=== PATIENT | female | born 2000 | race Caucasian/White ===

== ENCOUNTER 2023-12-07 03:58 | Observation (INO) | payer OTHER, SELFPAY ==
[2023-12-07] VITALS (13 sets, daily range): BP systolic 107–139; BP diastolic 69–89; PULSE 87–145; RESP 13–20; TEMP 36.3–37.1; O2SAT 97–100; BMI 23.3
--- NOTE | ~2023-12-07 | XR_ITS ---
Portable chest x-ray Comparison: None Clinical History: Cough Findings: Lungs are clear, without focal consolidation or pleural effusion. Cardiomediastinal silho uette is unremarkable. Bones and soft tissues are unremarkable. Impression: Normal chest. Reviewed, dictated and finalized at location . IC ASSISTANT Impression: Normal chest.
[2023-12-07 04:12] LABS: Glucose Point of Care > 500 mg/dl (65-105)
[2023-12-07 04:18] LABS: Basophils Absolute Auto 0.1 K/mm3 (0.0-0.1); Basophils Percent Auto 0.8 % (0.2-1.2); Eosinophils Absolute Auto 0.1 K/mm3 (0-0.3); Eosinophils Percent Auto 0.5 % (0-4.4); Hemoglobin 13.9 g/dL (12.0-15.0); Immature Granulocyte Absolute 0.24 K/mm3 (0.00-0.031); Immature Granulocyte Percent A 1.4 % (0-0.5); Lymphocytes Absolute Auto 2.83 K/mm3 (0.9-3.2); Mean Corpuscular HGB Conc 30.9 g/dl (32-36); Mean Corpuscular Hemoglobin 27.2 pg (26-34); Mean Corpuscular Volume 88.1 fl (80-100); Mean Platelet Volume 11.3 fl (7.4-10.4); Monocytes Absolute Auto 0.8 K/mm3 (0.1-0.6); Monocytes Percent Auto 4.7 % (2.6-8.5); Neutrophils Absolute Auto 13.6 K/mm3 (1.3-6.7); Neutrophils Percent Auto 76.6 % (45.5-73.1); Platelet Count Result 337 k/mm3 (150-375); Red Blood Count 5.11 M/mm3 (4.2-5.4); Red Cell Distribution Width 16.5 % (11.5-14.5); White Blood Count 17.7 K/mm3 (4.5-10.0)
--- NOTE | 2023-12-07 04:27 | PC.NURSE ---
UPON ARRIVAL TO ROOM PT STATES SHE HAD A BABY 8 WEEKS AGO AT [facility]. PT IS NOTED TO BE BREAST FEEDING AT THIS TIME. PT IS SLOW TO ANSWER QUESTIONS AND LETHARGIC UPON ASSESSMENT. PT STATES SHE HAS HAD A HX OF BEING IN DKA. PT WAS ABLE TO AMBULATE OUT OF THE WHEELCHAIR AND INTO THE BED ASSISTED BY X2 RNS, WITH AN UNSTEADY GAIT. EDP MADE AWARE ALONG WITH BIT GATHERER. THIS RN ESTABLISHED A 2ND IV. IV ACCESS X2 IN BILATERAL AC.
[2023-12-07 04:50] LABS: Alanine Aminotransferase 48 U/L (6-35); Albumin Level 4.9 g/dL (3.5-5.1); Alkaline Phosphatase 132 U/L (38-126); Anion Gap 27 mmol/L (8-16); Aspartate Amino Transferase 41 U/L (14-36); Bilirubin,Total 0.9 mg/dL (0.2-1.3); Blood Urea Nitrogen 13 mg/dL (7-17); Calcium 10.1 mg/dL (8.4-10.2); Carbon Dioxide 8 mmol/L (22-30); Chloride 103 mmol/L (98-107); Estimated CRCL calculation 86 ml/min; Estimated Glomerular Filt Rate > 60; Glucose 515 mg/dL (65-110); Magnesium 1.6 mg/dL (1.6-2.3); Phosphorus 5.6 mg/dL (2.5-4.5); Potassium 4.5 mmol/L (3.4-5.0); Sodium 138 mmol/L (137-145)
--- NOTE | 2023-12-07 05:15 | PC.NURSE ---
THIS RN MADE RHEUMATOLOGIST AWARE AND EDP DR. FELIX AWARE OF PT CONDITION OF LETHARGIC AND INCREASING HEART RATE.
[2023-12-07 05:17] LABS: Beta-Hydroxybutyrate/Acetoacetate 9.69 mmol/L (0.02-0.27)
--- NOTE | 2023-12-07 05:59 | PC.NURSE ---
THIS RN SPOKE WITH EDP DR. FELIX AND HUB BORER ABOUT PATIENT CONDITION. PT VISITOR ASKED THIS RN TO NOTIFY PROVIDER OF WORSENING CONDITION. THIS RN EXPLAINED TO PT VISITOR THAT THIS RN HAS MULTIPLE TIMES ASKED EDP TO ASSESS PT. PT VISITOR TOLD THIS RN, I AM GOING TO HAVE TO LEAVE AND GO TO A DIFFERENT HOSPITAL, NO ONE HAS SEEN HER AND SHE IS IN A MEDICAL EMERGENCY, WE HAVE NEVER HAD TO DEAL WITH THIS AT OTHER HOSPITALS. SHE NEEDS INSULIN RIGHT NOW AND NO ONE IS HELPING HER . THIS RN EXPLAINED TO PT THAT THIS RN HAS ADVOCATED MULTIPLE TIMES FOR PT TO BE SEEN BY A PROVIDER. THIS RN MADE EDP DR. FELIX AWARE OF PATIENT ALONG WITH ED HUB BORER. EDP WENT AND ASSESSED PT. HUB BORER STATED NEW CHARGE CAN GO AND SPEAK WITH PT AND PT VISITOR .
--- NOTE | 2023-12-07 06:03 | PC.NURSE ---
ON 12/07/2023 AT 0603 THIS RN WENT INTO ED ROOM 1, AND SPOKE WITH PT'S VISITOR REGARDING HIS FRUSTRATION WITH THE WAIT TIME FOR HIS SIGNIFICANT OTHER. PT'S VISITOR WAS GIVEN GUILLERMO ZIMMERMAN -PT ADVOCATE's CARD WITH CONTACT INFO ON IT. PT'S VISITOR WAS REASSURED BY THIS NURSE THAT HIS SIGNIFICANT OTHER WILL BE TAKEN CARE OF, AND THAT ORDERS WERE BEING PUT INTO PLACE FOR HER AT THIS TIME. PT'S VISITOR VERBALIZED UNDERSTANDING.
--- NOTE | 2023-12-07 06:09 | PC.NURSE ---
EDP DR. FELIX VERBAL ORDER 3L OF NORMAL SALINE AT A RATE OF 999MLS/ HOUR FOR PT. THIS RN USED CLOSED LOOP COMMUNICATION TO CONFIRM RATE/ DOSE/ MEDICATION/ AND PATIENT. EDP DR. FELIX VERIFIED.
[2023-12-07] MEDS: INSULIN HUMAN REGULAR (*BKC) 100 UNITS/ML 10 UNITS IV PUSH (06:14)
--- NOTE | 2023-12-07 06:19 | ECG_ITS ---
Measurements Intervals [place] Rate: 145 P: 66 WA: 126 QRS: 82 QRSD: 86 T: 47 QT: 315 QTc: 490 Interpretive Statements SINUS TACHYCARDIA MINIMAL Q WAVES- INFERIOR LEADS NONSPECIFIC ST & T-WAVE ABNORMALITY- INFERIOR LEADS BASELINE WANDER- II, III, V5 ABNORMAL ECG NO PREVIOUS ECG AVAILABLE FOR COMPARISON Electronically Signed On 12-07-2023 7:05:20 HOGSHEAD PACKER by Viet Bear D.O.
--- NOTE | 2023-12-07 06:50 | ED.GENADULT ---
HPI - General Adult General Chief complaint: Recheck/Abnormal Lab/Rx Stated complaint: n/v, hyperglycemia Time Seen by Provider: 12/07/23 06:05 History of Present Illness HPI narrative: Patient is a 43-year-old female insulin-dependent diabetic it is 8 weeks presents emerged from with chief complaint of nausea vomiting patient reports she has history of diabetes reports feels similar to whenever she has been in DKA the patient reports that yesterday her blood sugars were normal the man had a malfunction with her insulin pump patient reports that she slept a lot today Related Data Allergies Allergy/AdvReac Type Severity Reaction Status Date / Time amoxicillin Allergy Rash Verified 12/07/23 04:09 clavulanic acid Allergy Rash Verified 12/07/23 04:09 [From Augmentin] metoclopramide [From Reglan] Allergy Other Verified 12/07/23 04:09 Review of Systems Review of Systems: A 10 system review of systems was completed on the patient and is negative except for what is stated in the HPI. Nursing and ancillary documentation was reviewed. Course Course Emergency Course: GENERAL: Ill-appearing, dry mucous membranes tachycardic HEAD: Normocephalic, atraumatic. EYES: PERRLA and EOMI. ENT: Nares clear, no rhinorrhea or epistaxis. Mucous membranes dry. NECK: Supple. CHEST: Clear to auscultation. No respiratory distress. HEART: Tachycardic rate and rhythm. No murmur heard. Normal peripheral pulses. ABDOMEN: Soft, nontender, nondistended, normal active bowel sounds. EXTREMITIES: Normal range of motion. No edema. SKIN: Warm, dry, no rash. NEURO: No focal deficits. Alert and oriented x3. PSYCH: Normal mood and affect. Vital Signs Vital signs: Vital Signs Temperature 36.3 C L 12/07/23 04:05 Pulse Rate 145 H 12/07/23 04:05 Respiratory Rate 16 12/07/23 04:05 Blood Pressure 107/89 12/07/23 04:05 Pulse Oximetry 97 12/07/23 04:05 Oxygen Delivery Room Air 12/07/23 04:05 Temperature 36.3 C L 12/07/23 04:05 Pulse Rate 137 H 12/07/23 05:15 Respiratory Rate 16 12/07/23 04:26 Blood Pressure 126/87 12/07/23 04:24 Pulse Oximetry 99 12/07/23 04:26 Oxygen Delivery Room Air 12/07/23 04:05 Medical Decision Making MDM Narrative Medical decision making narrative: Differential diagnosis includes DKA, viral syndrome, infection, Chest x-ray showed no evidence of pneumonia Patient's laboratory studies showed a blood sugar of greater than 500. Respiratory was 9.69 patient has an anion gap that is 27 CO2 was 8 Patient received fluids 3 L of normal saline boluses. Insulin drip was started on the patient case was discussed with both the hospitalist and the chairman & co founder Vital Signs Vital Signs: Vital Signs Temperature 36.3 C L 12/07/23 04:05 Pulse Rate 145 H 12/07/23 04:05 Respiratory Rate 16 12/07/23 04:05 Blood Pressure 107/89 12/07/23 04:05 Pulse Oximetry 97 12/07/23 04:05 Oxygen Delivery Room Air 12/07/23 04:05 Temperature 36.3 C L 12/07/23 04:05 Pulse Rate 137 H 12/07/23 05:15 Respiratory Rate 16 12/07/23 04:26 Blood Pressure 126/87 12/07/23 04:24 Pulse Oximetry 99 12/07/23 04:26 Oxygen Delivery Room Air 12/07/23 04:05 Lab Data 12/07/23 04:13 12/07/23 04:13 Labs: Lab Results 12/07/23 12/07/23 Range/Units 04:08 04:13 WBC 17.7 H (4.5-10.0) K/mm3 RBC 5.11 (4.2-5.4) M/mm3 Hgb 13.9 (12.0-15.0) g/dL Hct 45.0 (37.0-47.0) % MCV 88.1 (80-100) fl MCH 27.2 (26-34) pg MCHC 30.9 L (32-36) g/dl RDW 16.5 H (11.5-14.5) % Plt Count 337 (150-375) k/mm3 MPV 11.3 H (7.4-10.4) fl Immature Gran % (Auto) 1.4 H (0-0.5) % Neut % (Auto) 76.6 H (45.5-73.1) % Lymph % (Auto) 16.0 L (18.3-44.2) % Smyth % (Auto) 4.7 (2.6-8.5) % Eos % (Auto) 0.5 (0-4.4) % Baso % (Auto) 0.8 (0.2-1.2) % Lymph # (Auto) 2.83 (0.9-3.2) K/mm3 Smyth # (Auto) 0.8 H (0.1-0.6
[2023-12-07] MEDS: INSULIN HUMAN REGULAR (*BKC) 100 UNITS in SODIUM CHLORIDE 0.9% IV 99 ML 6 UNITS IV CONT (06:53)
[2023-12-07] MEDS: SODIUM CHLORIDE 0.9% IV 1,000 ML 999 ML IV CONT (06:56)
--- NOTE | 2023-12-07 06:59 | PC.NURSE ---
THIS RN CONSULTED OB RNS TO HELP PT USE A BREAST PUMP FOR 8 WEEK OLD AT BEDSIDE. PT STATED SHE IS USED TO PUMPING TO FEED INFANT, HOWEVER SHE IS FEELING WEAK UNABLE TO GET ANYTHING OUT OF THE PUMP. THIS RN CONSULTED OB TO INQUIRE ABOUT FORMULA FOR AT BEDSIDE. OB RN CAME TO BEDSIDE AND EDUCATED PT ON HOW TO USE BREAST PUMP ALONG WITH PROVIDER INFANT FORMULA.
[2023-12-07 07:23] LABS: Alanine Aminotransferase 36 U/L (6-35); Albumin Level 4.1 g/dL (3.5-5.1); Alkaline Phosphatase 109 U/L (38-126); Aspartate Amino Transferase 28 U/L (14-36); Bilirubin,Total 0.6 mg/dL (0.2-1.3); Blood Urea Nitrogen 13 mg/dL (7-17); Calcium 8.7 mg/dL (8.4-10.2); Carbon Dioxide < 5 mmol/L (22-30); Chloride 111 mmol/L (98-107); Estimated CRCL calculation 98 ml/min; Estimated Glomerular Filt Rate > 60; Glucose 378 mg/dL (65-110); Magnesium 1.7 mg/dL (1.6-2.3); Phosphorus 4.7 mg/dL (2.5-4.5); Potassium 3.9 mmol/L (3.4-5.0); Sodium 141 mmol/L (137-145)
[2023-12-07 07:36] LABS: Influenza A QL RT-PCR Negative (Negative); Influenza B QL RT-PCR Negative (Negative); RSV RNA, RT-PCR Negative (Negative); SARS-CoV-2 RNA PCR Negative (Negative)
[2023-12-07 07:48] LABS: Hemoglobin A1C 8.4 % (<5.7)
[2023-12-07 08:06] LABS: Glucose Point of Care 213 mg/dl (65-105)
[2023-12-07 08:35] LABS: Appearance Urine Cloudy (Clear); Bacteria Urine None Seen /hpf; Bilirubin Urine Negative (Negative); Blood Urine 2+ (Negative); Color Urine Yellow (Yellow); Glucose Urine UA 3+ mg/dL (Negative); Ketones Urine 4+ mg/dL (Negative); Leukocyte Esterase Ur Negative LEU/UL (Negative); Nitrate Urine Negative (Negative); Non Pathogenic Casts 0-2; Protein Urine 1+ mg/dL (Negative); RBC Urine 0-2 /hpf (0-2); Specific Grav Ur 1.025 (1.001-1.035); Squamous Epithelial Cell Urine Occasional /hpf (Few); Urobilinogen Urine 0.2 mg/dL (<2.0); WBC Urine 0-5 /hpf
[2023-12-07 08:37] LABS: Add Urine Microscopic? YES
[2023-12-07] MEDS: KCL 20 MEQ/D5/0.45% SOD CHL 1,000 ML 150 ML IV CONT ×2 (08:45→17:17)
--- NOTE | 2023-12-07 08:47 | WPDCNINT ---
Assessment and Plan Assessment and plan (1) Diabetic ketoacidosis: Code(s): E11.10 - Type 2 diabetes mellitus with ketoacidosis without coma Status: Acute Assessment and Plan: Patient given iVF bolus and will be continued on infusion Patient started on insulin infusion and Q1H glucose monitoring Serial labs will be done UA and chest x-ray negative for any evidence of infection Influenza RSV and COVID PCR negative Replace electrolytes as needed Will transition to SC insulin once AG is closed Consult dietitian and senior health educator (2) Hypothyroidism: Code(s): E03.9 - Hypothyroidism, unspecified Status: Acute Assessment and Plan: Continue levothyroxine and check TSH Plan DVT prophylaxis -SCDs Nutrition -npo Code Status - Full Code Total Critical Care Time - 30 minutes Due to a high probability of clinically significant, life threatening deterioration, the patient required my highest level of preparedness to intervene emergently and I personally spent this critical care time directly and personally managing the patient. This critical care time included obtaining a history; examining the patient; pulse oximetry; ordering and review of studies; arranging urgent treatment with development of a management plan; evaluation of patient's response to treatment; frequent reassessment; and discussions with other providers. It was exclusive of separately billable procedures and treating other patients and teaching time. Please see Assessment and Plan section and the rest of the note for further information on patient assessment and treatment Keypuncher Consult Note Consult date: 12/07/23 Reason for consult: DKA HPI: Gianna Christine is a 23 year old female with past medical history of diabetes, preeclampsia and hypothyroidism who is 8 weeks presented with chief complaint of nausea vomiting this morning. Patient normally uses insulin pump and has a Dexcom monitor. Her Dexcom monitor has not been working properly and she has been using fingersticks to monitor blood sugars which have been mostly in range high checks over last few days. She woke up around 2:00 a.m. this morning and after that she started feeling nauseous and had vomiting no abdominal pain. She noticed her blood sugar to be 500 and hence presented to ER. She has had 2 episodes of DKA in the past requiring admission. Last admission was more than a year ago. Denies any other complaints or symptoms. Patient denies fever, chest pain, shortness of breath, cough, abdominal pain,, diarrhea, headache or constipation. No dysuria hematuria. All other systems were reviewed and negative. In ER patient was found to be having DKA and was given IV fluid bolus and started on IV fluids and IV insulin infusion. She states she feels much better now but still has some nausea although it is better than before. No other new complaints. Review of Systems Review of Systems: All systems reviewed & are unremarkable except as noted in HPI and below (HPI) Meds Home Medications and Allergies Home Medications Medication Instructions Recorded Confirmed Type ferrous gluconate 240 mg (27 mg 240 mg PO DAILY 12/07/23 12/07/23 History iron) tablet levothyroxine 150 mcg tablet 150 mcg PO DAILY 12/07/23 12/07/23 History Allergies Allergy/AdvReac Type Severity Reaction Status Date / Time amoxicillin Allergy Rash Verified 12/07/23 04:09 clavulanic acid Allergy Rash Verified 12/07/23 04:09 [From Augmentin] metoclopramide [From Reglan] Allergy Other Verified 12/07/23 04:09 Vital Signs Vital Signs - 24 hr 12/07/23 04:05 12/07/23 04:24 12/07/23 04:26 Temperature 36.3 C L Pulse Rate 145 H 142 H Respiratory Rate 16 15 16 Blood Pressure 107/89 126/87 Pulse Oximetry 97 100 99 Oxygen Delivery Room Air 12/07/23 05:15 12/07/23 07:21 12/07/23 07:55 Temperature Pulse Rate 137 H 140 H 136 H Respiratory Rate 16 20 Blood Press
[2023-12-07] MEDS: ONDANSETRON INJ 4 MG/2 ML VIAL IV PUSH (08:49)
[2023-12-07 10:05] LABS: Glucose Point of Care 181 mg/dl (65-105)
[2023-12-07 10:05] LABS: Glucose Point of Care 174 mg/dl (65-105)
[2023-12-07 11:18] LABS: Anion Gap 20 mmol/L (8-16); Blood Urea Nitrogen 9 mg/dL (7-17); Calcium 8.6 mg/dL (8.4-10.2); Carbon Dioxide 8 mmol/L (22-30); Chloride 115 mmol/L (98-107); Estimated CRCL calculation 112 ml/min; Estimated Glomerular Filt Rate > 60; Glucose 200 mg/dL (65-110); Potassium 4.4 mmol/L (3.4-5.0); Sodium 143 mmol/L (137-145)
[2023-12-07 12:12] LABS: Glucose Point of Care 247 mg/dl (65-105)
[2023-12-07 12:30] LABS: Thyroid Stimulating Hormone Reflex 0.496 uIU/mL (0.465-4.68)
[2023-12-07 13:10] LABS: Glucose Point of Care 318 mg/dl (65-105)
[2023-12-07] MEDS: SODIUM CHLORIDE 0.9% IV 1,000 ML 150 ML IV CONT (13:15)
[2023-12-07 14:07] LABS: Glucose Point of Care 251 mg/dl (65-105)
[2023-12-07 15:09] LABS: Glucose Point of Care 206 mg/dl (65-105)
[2023-12-07 15:31] LABS: Anion Gap 13 mmol/L (8-16); Blood Urea Nitrogen 7 mg/dL (7-17); Calcium 8.8 mg/dL (8.4-10.2); Carbon Dioxide 12 mmol/L (22-30); Chloride 114 mmol/L (98-107); Estimated CRCL calculation 132 ml/min; Estimated Glomerular Filt Rate > 60; Glucose 184 mg/dL (65-110); Potassium 3.8 mmol/L (3.4-5.0); Sodium 139 mmol/L (137-145)
[2023-12-07 16:16] LABS: Glucose Point of Care 177 mg/dl (65-105)
[2023-12-07 17:21] LABS: Glucose Point of Care 169 mg/dl (65-105)
--- NOTE | 2023-12-07 18:13 | PM.IMHP ---
H&P: HPI History of Present Illness Date/Time: 12/07/23 18:13 Chief Complaint: Nausea and vomiting Narrative: 23-year-old female with history of insulin-dependent diabetes mellitus preeclampsia and hypothyroidism. She reports being 8 weeks . She had nausea and vomiting morning of admission. Reports being compliant with her medications except that her Dexcom has not been working properly. She has history of prior DKA and at that time her insulin pump was malfunctioning. She cannot elicit other complaints and does not feel like she has an infection of any type. Comprehensive review of systems is negative including nausea and vomiting as the DKA treatment has been underway. Review of Systems Review of Systems: All systems reviewed & are unremarkable except as noted in HPI and below (HPI) FOR[facility]LY [facility], [facility] Past Medical History Medical History (Updated 12/07/23 @ 18:15 by Natasha Villa MD) Hypothyroidism Insulin dependent diabetes mellitus Social History Social History Smoking status: Never smoker Second hand tobacco smoke exposure: No Alcohol intake: unknown Substance use: never Do You Feel Safe in your Home?: Yes Lack of Transportation: No Lack of Food: Never True Current Housing: I Have Housing Concerned About Future Housing: No Difficulty Paying Gas/Electric Bills: No Difficulty Paying for Meds: No Currently Unemployed: No Education: High School Diploma/GED Difficulty w/ Childcare or Family Care: No Spiritual care concerns: No Meds Home Medications and Allergies Home Medications Medication Instructions Recorded Confirmed Type ferrous gluconate 240 mg (27 mg 240 mg PO DAILY 12/07/23 12/07/23 History iron) tablet levothyroxine 150 mcg tablet 150 mcg PO DAILY 12/07/23 12/07/23 History Allergies Allergy/AdvReac Type Severity Reaction Status Date / Time amoxicillin Allergy Rash Verified 12/07/23 04:09 clavulanic acid Allergy Rash Verified 12/07/23 04:09 [From Augmentin] metoclopramide [From Reglan] Allergy Other Verified 12/07/23 04:09 Vital Signs Vital Signs - 24 hr 12/07/23 04:05 12/07/23 04:24 12/07/23 04:26 Temperature 97.4 F L Pulse Rate 145 H 142 H Respiratory Rate 16 15 16 Blood Pressure 107/89 126/87 Pulse Oximetry 97 100 99 Oxygen Delivery Room Air 12/07/23 05:15 12/07/23 07:21 12/07/23 07:55 Temperature Pulse Rate 137 H 140 H 136 H Respiratory Rate 16 20 Blood Pressure 139/80 130/80 Pulse Oximetry 100 99 Oxygen Delivery 12/07/23 09:00 12/07/23 10:00 12/07/23 10:00 Temperature 98.8 F 98.8 F Pulse Rate 128 H 128 H 128 H Respiratory Rate 16 16 Blood Pressure 120/81 128/76 Pulse Oximetry 100 100 Oxygen Delivery 12/07/23 12:00 12/07/23 12:00 12/07/23 14:00 Temperature 97.8 F Pulse Rate 100 109 H 98 Respiratory Rate 16 Blood Pressure 119/69 Pulse Oximetry 99 Oxygen Delivery 12/07/23 14:00 12/07/23 16:00 12/07/23 18:00 Temperature 98.7 F 97.7 F 98.1 F Pulse Rate 98 89 95 Respiratory Rate 20 14 16 Blood Pressure 115/75 112/70 116/78 Pulse Oximetry 98 98 100 Oxygen Delivery Exam Const: General: comfortable and no acute distress Other: present in room. A&O x3. Eyes: Pupils: Equal, round and reactive pupils present Resp: Effort & Inspection: normal respiratory effort Auscultation: clear to auscultation bilaterally, no crackles, no rales and no rhonchi Cardio: Rate: regular rate Rhythm: regular rhythm Heart sounds: no gallops, no murmurs and no rubs GI: GI Palp: Yes Soft to palpation and No Tenderness to palpation present (GI) : General: Yes bladder normal to palpation Extrem: General: no edema H&P: Results Labs Labs: Short CBC 12/07/23 12/07/23 Range/Units 04:13 06:52 WBC 17.7 H Cancelled (4.5-10.0) K/mm3 Hgb 13.9 Cancelled (12.0-15.0) g/dL Hct 45.0 Cancelled (
[2023-12-07 18:26] LABS: Glucose Point of Care 181 mg/dl (65-105)
[2023-12-07 19:34] LABS: Anion Gap 15 mmol/L (8-16); Blood Urea Nitrogen 5 mg/dL (7-17); Calcium 8.7 mg/dL (8.4-10.2); Carbon Dioxide 12 mmol/L (22-30); Chloride 111 mmol/L (98-107); Estimated CRCL calculation 112 ml/min; Estimated Glomerular Filt Rate > 60; Glucose 234 mg/dL (65-110); Sodium 138 mmol/L (137-145)
[2023-12-07] MEDS: INSULIN GLARGINE (*BKC) 100 UNITS/ML 20 UNITS SUB-Q (20:50)
[2023-12-07 22:23] LABS: Anion Gap 13 mmol/L (8-16); Blood Urea Nitrogen 5 mg/dL (7-17); Calcium 8.6 mg/dL (8.4-10.2); Carbon Dioxide 12 mmol/L (22-30); Chloride 109 mmol/L (98-107); Estimated CRCL calculation 112 ml/min; Estimated Glomerular Filt Rate > 60; Glucose 379 mg/dL (65-110); Potassium 4.1 mmol/L (3.4-5.0); Sodium 134 mmol/L (137-145)
[2023-12-07] MEDS: INSULIN ASPART (*BKC) 100 UNITS/ML SUB-Q (22:47)
[2023-12-08] VITALS: PULSE 93
[2023-12-08 01:04] LABS: Glucose Point of Care 330 mg/dl (65-105)
[2023-12-08] MEDS: INSULIN ASPART (*BKC) 100 UNITS/ML SUB-Q ×3 (01:10→16:33)
[2023-12-08 04:00] VITALS: PULSE 95; TEMP 36.3; O2SAT 97
[2023-12-08 04:20] LABS: Glucose Point of Care 158 mg/dl (65-105)
[2023-12-08 04:49] LABS: Hematocrit 37.8 % (37.0-47.0); Hemoglobin 12.2 g/dL (12.0-15.0); Mean Corpuscular HGB Conc 32.3 g/dl (32-36); Mean Corpuscular Hemoglobin 27.6 pg (26-34); Mean Corpuscular Volume 85.5 fl (80-100); Platelet Count Result 246 k/mm3 (150-375); Red Blood Count 4.42 M/mm3 (4.2-5.4); Red Cell Distribution Width 16.4 % (11.5-14.5); White Blood Count 7.3 K/mm3 (4.5-10.0)
[2023-12-08 04:59] LABS: Alanine Aminotransferase 34 U/L (6-35); Albumin Level 3.9 g/dL (3.5-5.1); Alkaline Phosphatase 94 U/L (38-126); Anion Gap 13 mmol/L (8-16); Aspartate Amino Transferase 25 U/L (14-36); Bilirubin,Total 0.7 mg/dL (0.2-1.3); Blood Urea Nitrogen 6 mg/dL (7-17); Calcium 9.2 mg/dL (8.4-10.2); Carbon Dioxide 18 mmol/L (22-30); Chloride 110 mmol/L (98-107); Estimated CRCL calculation 132 ml/min; Estimated Glomerular Filt Rate > 60; Glucose 142 mg/dL (65-110); Magnesium 1.6 mg/dL (1.6-2.3); Phosphorus 2.3 mg/dL (2.5-4.5); Potassium 3.3 mmol/L (3.4-5.0); Sodium 141 mmol/L (137-145)
--- NOTE | 2023-12-08 06:36 | PC.NURSE ---
Report given to Linda DUNLAP, all questions answered, patient to go to [facility] as medical.
--- NOTE | 2023-12-08 06:57 | PC.NURSE ---
Pt arrived to 3 med surg room 323 via wheelchair. patient oriented to unit. educated about safety and precautions.
[2023-12-08 07:34] LABS: Glucose Point of Care 128 mg/dl (65-105)
[2023-12-08 11:26] LABS: Glucose Point of Care 368 mg/dl (65-105)
[2023-12-08 14:00] VITALS: BP 117/79; PULSE 76; RESP 16; TEMP 35.6; O2SAT 100
[2023-12-08 16:24] LABS: Glucose Point of Care 346 mg/dl (65-105)
--- NOTE | 2023-12-08 18:02 | PM.DS ---
DS: Admitting Diagnosis Discharge Date 12/08/23 Admitting Diagnosis Nausea and vomiting DS: Discharge Diagnosis Discharge Diagnosis (1) Hypothyroidism: Code(s): E03.9 - Hypothyroidism, unspecified Status: Acute (2) Diabetic ketoacidosis: Code(s): E11.10 - Type 2 diabetes mellitus with ketoacidosis without coma Status: Acute Assessment and Plan: Patient given iVF bolus and will be continued on infusion Patient started on insulin infusion and Q1H glucose monitoring Pt stabilized in ICU Treated there for DKA Will transition to SC insulin once AG is closed Consult dietitian and unit educator (3) Insulin dependent diabetes mellitus: Status: Acute DS: Summary Hospital Course Hospital Course: A 23-year-old female with history of insulin-dependent diabetes mellitus with prior history DKA due to insulin pump malfunction, preeclampsia, hypothyroidism. The patient presented with nausea and vomiting. Her Dexcom had been malfunctioning. Patient admitted on December 07, 2023. The patient is feeling much better and her symptomatology has resolved. Treat per the DKA protocol. Bicarb has increased from 8-12 and anion gap is closed x1. Deferred to alberene stone setter for further management and decision to transition. Restart her levothyroxine when she is taking p.o.. Sugars are stable on the floor pt ok to DC Time Spent with Patient Time attestation: Total time spent providing and/or coordinating discharge services:38 minutes on day of DC Exam Narrative: General: Pt is alert awake and in NAD Lungs/Chest: Trachea central Clear BS B/L, No crackles or wheezing. Cardiac: RRR. Normal S1 S2. No murmurs Circulation: Pedal pulses are intact and symmetrical. Abdomen: Normal bowel sounds.. Soft. NT. ND. Extremities: No clubbing, cyanosis or edema. Warm : Portillo in place Neurologic: Follows commands. Moves all 4 extremities PERRL Skin: No Rash Const: General: comfortable and no acute distress Other: present in room. A&O x3. Eyes: Pupils: Equal, round and reactive pupils present Resp: Effort & Inspection: normal respiratory effort Auscultation: clear to auscultation bilaterally, no crackles, no rales and no rhonchi Cardio: Rate: regular rate Rhythm: regular rhythm Heart sounds: no gallops, no murmurs and no rubs : General: Yes bladder normal to palpation Bimanual exam- vagina & uterus: bladder normal to palpation Neuro: Cranial nerves: Yes Equal, round and reactive pupils present Extrem: General: no edema DS: Data Data Completed and Pending Labs on day of discharge: Labs from last 24 hours 12/08/23 12/08/23 12/08/23 16:21 11:17 07:26 WBC RBC Hgb Hct MCV MCH MCHC RDW Plt Count MPV Sodium Potassium Chloride Carbon Dioxide Anion Gap BUN Creatinine Estim Creat Clear Calc Estimated GFR Glucose POC Capillary Glucose 346 H 368 H 128 H Calcium Phosphorus Magnesium Total Bilirubin AST ALT Alkaline Phosphatase Total Protein Albumin 12/08/23 12/08/23 12/08/23 04:27 04:14 00:58 WBC 7.3 RBC 4.42 Hgb 12.2 Hct 37.8 MCV 85.5 MCH 27.6 MCHC 32.3 RDW 16.4 H Plt Count 246 MPV 11.0 H Sodium 141 Potassium 3.3 L Chloride 110 H Carbon Dioxide 18 L Anion Gap 13 BUN 6 L Creatinine 0.50 L Estim Creat Clear Calc 132 Estimated GFR > 60 Glucose 142 H POC Capillary Glucose 158 H 330 H Calcium 9.2 Phosphorus 2.3 L Magnesium 1.6 Total Bilirubin 0.7 AST 25 ALT 34 Alkaline Phosphatase 94 Total Protein 7.0 Albumin 3.9 12/07/23 12/07/23 12/07/23 22:05 19:13 18:08 WBC RBC Hgb Hct MCV MCH MCHC RDW Plt Count MPV Sodium 134 L 138 Potassium 4.1 4.0 Chloride 109 H 111 H Carbon Dioxide 12 L 12 L Anion Gap 13 15 BUN
--- NOTE | 2023-12-10 16:29 | PC.NURSE ---
Patient left breast milk here in the fridge. Patient called and Vladislav answered. He states that they are not coming back to picker tender the breast milk and gave permission to dispose of it.
== END 2023-12-08 17:15 | disposition home or self-care (01) ==
LOC: ANHED 06:52 → ANHICU 16:35 → ANH3MEDSUR 12-08 08:29 → ANHICU 12-09 10:48
PROVIDERS: Internal Medicine; Admitting Provider Internal Medicine; Emergency Provider Emergency Medicine; Visit Provider Family Medicine
DX: E11.10 Type 2 diabetes mellitus with ketoacidosis without coma (principal); T85.614A Breakdown (mechanical) of insulin pump, initial encounter; E03.9 Hypothyroidism, unspecified; R00.0 Tachycardia, unspecified; Z20.822 Contact with and (suspected) exposure to COVID-19; R94.31 Abnormal electrocardiogram [ECG] [EKG]; Z79.899 Other long term (current) drug therapy
CPT/HCPCS: 36415; 71045; 80048; 80053; 81001; 81025; 82010; 82948; 83036; 83735; 84100; 84443; 85025; 85027; 87637; 93005; 96361; 96365; 96366; 96375; 99285; G0378; J1815; J2405; J3480; J7030